=== PATIENT | male | born 1980 | race Hispanic/Latino ===

== ENCOUNTER 2016-11-13 17:54 | Emergency (ER) | payer SELFPAY ==
[~2016-11-13] VITALS: Ht 160 cm; Wt 58.0 kg
[2016-11-13] MEDS ORDERED: NAPROSYN500 MG PO (18:17)
[2016-11-13 18:19] VITALS: BP 145/92
== END 2016-11-13 18:31 | disposition home or self-care (01) | DRG 607 ==
LOC: ED 17:54
DX: L72.3 Sebaceous cyst (principal)